=== PATIENT | female | born 1955 | race Two or more races ===

== ENCOUNTER 2018-04-21 13:12 | Outpatient (CLI) | payer OTHER | END 2018-04-21 13:16 | disposition home or self-care (01) | LOC: RAD 13:12 | DX: M54.2 Cervicalgia (principal) ==

== ENCOUNTER 2021-05-25 10:18 | Outpatient (CLI) | payer OTHER | END 2021-05-25 10:36 | disposition home or self-care (01) | LOC: RX STUDY 10:18 | DX: K44.9 Diaphragmatic hernia without obstruction or gangrene (principal); K59.01 Slow transit constipation; K56.51 Intestinal adhesions [bands], with partial obstruction ==